=== PATIENT | female | born 1970 | race Caucasian/White ===

== ENCOUNTER 2018-03-14 12:05 | Outpatient (CLI) | payer OTHER ==
[~2018-03-14 12:05] MED LIST: BISOPROLOL-HCTZ1 TA1; LIPITOR20 MG; LIPO-FLAVONOID1 EACH PO; MECLIZINE HCL25 MG PO
== END 2018-03-14 14:59 | disposition home or self-care (01) ==
LOC: SONOGRAMA 12:05
DX: E04.1 Nontoxic single thyroid nodule (principal)

== ENCOUNTER 2025-03-05 09:52 | Outpatient (CLI) | payer OTHER | END 2025-03-05 09:54 | disposition home or self-care (01) | LOC: SONOGRAMA 09:52 | PROVIDERS: ATTEND Pathology Anatomic Pathology & Clinical Pathology | DX: D34 Benign neoplasm of thyroid gland (principal); E07.89 Other specified disorders of thyroid; E04.1 Nontoxic single thyroid nodule ==